=== PATIENT | female | born 1990 | race Caucasian/White ===

== ENCOUNTER 2017-08-23 21:56 | Emergency (ER) | payer SELFPAY ==
[~2017-08-23] VITALS: Ht 170.2 cm; Wt 75.4 kg
[~2017-08-23 21:56] MED LIST: BIRTH CONTROL PO; Desyrel PO; MEDROL DOSEPAK4 MG PO; NAPROSYN500 MG PO; NOHOMEMEDS; PEPCID40 MG PO; ULTRAM50 MG PO; celeXA PO
[2017-08-23] MEDS ORDERED: VALIUM5 MG PO (23:30)
[2017-08-23] MEDS ORDERED: NORCO 7.5/321 TABLET PO (23:30)
[2017-08-23] MEDS ORDERED: MOTRIN800 MG PO (23:30)
[2017-08-24 00:11] VITALS: BP 110/73
== END 2017-08-24 00:13 | disposition home or self-care (01) ==
LOC: EME 21:56
DX: S39.012A Strain of muscle, fascia and tendon of lower back, initial encounter (principal); X50.9XXA Other and unspecified overexertion or strenuous movements or postures, initial encounter; Y93.89 Activity, other specified
CPT/HCPCS: 99281; 99284